=== PATIENT | female | born 1945 | race African-American/Black ===

== ENCOUNTER 2016-10-25 22:49 | Inpatient (IN) | payer MEDICARE ==
[~2016-10-25] VITALS: Ht 160 cm; Wt 87.3 kg
[2016-10-25 23:44] LABS: BASO % 0.6 % (0.0-2.0); EOS # 0.1 (0.0-0.7); EOS % 1.9 % (0-4.0); HEMATOCRIT 38.9 % (37.0-47.0); HEMOGLOBIN 12.3 g/dl (12.5-16.0); LYMPH # 1.6 (1.2-3.4); LYMPH % 29.7 % (20.0-51.0); MEAN CELL VOLUME 79 fl (80.0-100.0); MEAN CORPUSCULAR HEMOGLOBIN 25 pg (27.0-31.0); MEAN CORPUSCULAR HGB CONC 32 g/dl (33.0-37.0); MEAN PLATELET VOLUME 9.8 fl (7.4-10.4); MONO # 0.6 (0.1-0.6); MONO % 10.6 % (1.7-9.3); PLATELET COUNT 391 K/mm3 (130-400); RED BLOOD COUNT 4.93 M/mm3 (4.10-5.30); REDCELL DISTRIBUTION WIDTH-CV 15.1 % (11.5-14.5); WHITE BLOOD COUNT 5.3 K/mm3 (4.8-10.8)
[2016-10-25 23:57] LABS: INR 1.1 (0.8-3.0); PROTHROMBIN TIME 12.3 SECONDS (9.7-12.8)
[2016-10-26] VITALS (7 sets, daily range): BP systolic 105–156; BP diastolic 52–89; PULSE 87–103; TEMP 95–98.7
[2016-10-26] LABS: ADJUSTED CALCIUM 9.2 mg/dL (8.4-10.2); ALBUMIN 4.3 gm/dL (3.5-5.0); BILIRUBIN,TOTAL 0.9 mg/dL (0.0-1.0); CALCIUM 9.4 mg/dL (8.4-10.2); CREATININE, serum 0.75 mg/dL (0.52-1.25); POTASSIUM 3.9 mmol/L (3.4-5.0); TOTAL PROTEIN 8.3 gm/dL (6.4-8.2)
[2016-10-26 00:13] LABS: TROPONIN-I 0.033 ng/mL (0.000-0.034)
[2016-10-27 04:01] VITALS: BP 150/82; PULSE 87; TEMP 99
[2016-10-27 07:39] VITALS: BP 142/66; PULSE 98; TEMP 98
[2016-10-27 10:00] LABS: BASO % 0.2 % (0.0-2.0); EOS # 0.1 (0.0-0.7); GRAN # 2.2 (1.4-6.5); GRAN % 55.5 % (42.2-75.2); LYMPH # 1.4 (1.2-3.4); LYMPH % 35.2 % (20.0-51.0); MEAN CELL VOLUME 80 fl (80.0-100.0); MEAN CORPUSCULAR HEMOGLOBIN 24 pg (27.0-31.0); MEAN CORPUSCULAR HGB CONC 30 g/dl (33.0-37.0); MEAN PLATELET VOLUME 9.9 fl (7.4-10.4); MONO # 0.3 (0.1-0.6); MONO % 6.9 % (1.7-9.3); PLATELET COUNT 386 K/mm3 (130-400); RED BLOOD COUNT 4.73 M/mm3 (4.10-5.30); REDCELL DISTRIBUTION WIDTH-CV 15.3 % (11.5-14.5)
[2016-10-27 10:15] LABS: HEMOGLOBIN 11.5 g/dl (12.5-16.0)
[2016-10-27 11:43] VITALS: BP 92/53; PULSE 78; TEMP 98.3
[2016-10-27 15:10] VITALS: BP 130/67; PULSE 88; TEMP 97.9
[2016-10-27 18:12] LABS: CALCIUM 9.9 mg/dL (8.4-10.2); CREATININE, serum 0.78 mg/dL (0.52-1.25)
[2016-10-27 20:40] VITALS: BP 118/56; PULSE 87; TEMP 98.6
[2016-10-28] VITALS (7 sets, daily range): BP systolic 109–149; BP diastolic 54–74; PULSE 79–91; TEMP 97.5–98.3
[2016-10-28 07:51] LABS: BASO % 0.4 % (0.0-2.0); EOS # 0.1 (0.0-0.7); EOS % 2.7 % (0-4.0); GRAN # 2.5 (1.4-6.5); GRAN % 51.4 % (42.2-75.2); HEMATOCRIT 35.8 % (37.0-47.0); HEMOGLOBIN 11.3 g/dl (12.5-16.0); LYMPH # 1.5 (1.2-3.4); LYMPH % 31.3 % (20.0-51.0); MEAN CELL VOLUME 79 fl (80.0-100.0); MEAN CORPUSCULAR HEMOGLOBIN 25 pg (27.0-31.0); MEAN CORPUSCULAR HGB CONC 32 g/dl (33.0-37.0); MEAN PLATELET VOLUME 9.5 fl (7.4-10.4); MONO # 0.7 (0.1-0.6); PLATELET COUNT 371 K/mm3 (130-400); RED BLOOD COUNT 4.51 M/mm3 (4.10-5.30); WHITE BLOOD COUNT 4.9 K/mm3 (4.8-10.8)
[2016-10-28 08:11] LABS: CALCIUM 9.5 mg/dL (8.4-10.2); CREATININE, serum 0.75 mg/dL (0.52-1.25); POTASSIUM 4.2 mmol/L (3.4-5.0)
[2016-10-29] VITALS (8 sets, daily range): BP systolic 106–183; BP diastolic 57–96; PULSE 74–104; TEMP 97.5–98.3
[2016-10-29 06:31] LABS: BASO % 0.2 % (0.0-2.0); GRAN # 4.4 (1.4-6.5); GRAN % 77.1 % (42.2-75.2); HEMATOCRIT 38.7 % (37.0-47.0); HEMOGLOBIN 12.4 g/dl (12.5-16.0); LYMPH # 1.2 (1.2-3.4); LYMPH % 20.4 % (20.0-51.0); MEAN CELL VOLUME 78 fl (80.0-100.0); MEAN CORPUSCULAR HEMOGLOBIN 25 pg (27.0-31.0); MEAN CORPUSCULAR HGB CONC 32 g/dl (33.0-37.0); MEAN PLATELET VOLUME 9.8 fl (7.4-10.4); MONO # 0.1 (0.1-0.6); MONO % 1.8 % (1.7-9.3); PLATELET COUNT 437 K/mm3 (130-400); RED BLOOD COUNT 4.96 M/mm3 (4.10-5.30); REDCELL DISTRIBUTION WIDTH-CV 14.6 % (11.5-14.5); WHITE BLOOD COUNT 5.7 K/mm3 (4.8-10.8)
[2016-10-29 06:47] LABS: CALCIUM 9.9 mg/dL (8.4-10.2); CREATININE, serum 0.75 mg/dL (0.52-1.25); POTASSIUM 4.4 mmol/L (3.4-5.0)
[2016-10-29] MEDS ORDERED: ZEBETA 5MG5 MG PO (14:39)
[2016-10-29] MEDS ORDERED: ISORDIL 10MG10 MG PO (14:39)
[2016-10-29] MEDS ORDERED: FERROUS SU325 MG/TAB PO (14:39)
[2016-10-29] MEDS ORDERED: COZAAR 50MG50 MG/TAB PO (14:40)
[2016-10-29] MEDS ORDERED: ASPIRIN E.C. 8181 MG PO (14:40)
[2016-10-29] MEDS ORDERED: LASIX 40MG TABL40 MG PO (14:41)
[2016-10-29] MEDS ORDERED: K-TAB20 PO (14:41)
== END 2016-10-29 16:30 | disposition home or self-care (01) | DRG 189 ==
LOC: COL.ER 22:49 → MEDICAL 10-26 00:44 → COL.ER 10-26 00:44 → MEDICAL 10-27 13:00
PROVIDERS: Emergency Medicine; Internal Medicine Cardiovascular Disease
PROC: B2151ZZ Fluoroscopy of Left Heart using Low Osmolar Contrast (ICD-10-PCS; principal; 2016-10-29)
PROC: B2111ZZ Fluoroscopy of Multiple Coronary Arteries using Low Osmolar Contrast (ICD-10-PCS; 2016-10-29)
DX: J96.01 Acute respiratory failure with hypoxia (principal); I50.21 Acute systolic (congestive) heart failure; I24.8 Other forms of acute ischemic heart disease; D50.9 Iron deficiency anemia, unspecified; I10 Essential (primary) hypertension; M06.9 Rheumatoid arthritis, unspecified; I34.0 Nonrheumatic mitral (valve) insufficiency; Z87.891 Personal history of nicotine dependence; Z88.0 Allergy status to penicillin; Z91.041 Radiographic dye allergy status
CPT/HCPCS: OP; 99231-AI; 99239; C1769; C1887; C1894; G0378; J1200; J1644; J1650; J1940; J2250; J2930; J3010; J7512; Q9967

== ENCOUNTER → 2016-11-05 | Outpatient (CLI) | payer MEDICARE ==
[~2016-11-05] MED LIST: ASPIRIN E.C. 8181 MG PO; COZAAR 50MG50 MG/TAB PO; FERROUS SU325 MG/TAB PO; ISORDIL 10MG10 MG PO; K-TAB20 PO; LASIX 40MG TABL40 MG PO; LEVAQUIN 5500 MG/TA1 PO; PREDNISONE20 MG PO; ZEBETA 5MG5 MG PO
== END ==
LOC: COL.RAD 15:00
DX: Z53.9 Procedure and treatment not carried out, unspecified reason (principal)

== ENCOUNTER → 2016-11-06 | Outpatient (CLI) | payer MEDICARE | LOC: COL.RAD 11:21 | DX: J81.0 Acute pulmonary edema (principal); J98.11 Atelectasis; R91.8 Other nonspecific abnormal finding of lung field | CPT/HCPCS: J7512; Q9967 ==

== ENCOUNTER 2016-11-17 08:07 | Emergency (ER) | payer MEDICARE ==
[~2016-11-17] VITALS: Ht 160 cm; Wt 87.3 kg
[~2016-11-17 08:07] MED LIST changes: -LEVAQUIN 5500 MG/TA1 PO; -PREDNISONE20 MG PO
[2016-11-17 08:09] VITALS: TEMP 98.5
[2016-11-17 08:42] LABS: BASO % 0.4 % (0.0-2.0); EOS % 0.3 % (0-4.0); GRAN # 4.8 (1.4-6.5); GRAN % 65.4 % (42.2-75.2); HEMATOCRIT 37.5 % (37.0-47.0); HEMOGLOBIN 11.9 g/dl (12.5-16.0); LYMPH # 1.6 (1.2-3.4); LYMPH % 22.6 % (20.0-51.0); MEAN CELL VOLUME 79 fl (80.0-100.0); MEAN CORPUSCULAR HEMOGLOBIN 25 pg (27.0-31.0); MEAN CORPUSCULAR HGB CONC 32 g/dl (33.0-37.0); MEAN PLATELET VOLUME 9.5 fl (7.4-10.4); MONO # 0.8 (0.1-0.6); PLATELET COUNT 324 K/mm3 (130-400); RED BLOOD COUNT 4.73 M/mm3 (4.10-5.30); REDCELL DISTRIBUTION WIDTH-CV 15.5 % (11.5-14.5); WHITE BLOOD COUNT 7.3 K/mm3 (4.8-10.8)
[2016-11-17 08:51] LABS: ADJUSTED CALCIUM 9.2 mg/dL (8.4-10.2); ALBUMIN 4.2 gm/dL (3.5-5.0); BILIRUBIN,TOTAL 1.2 mg/dL (0.0-1.0); CALCIUM 9.4 mg/dL (8.4-10.2); CREATININE, serum 0.89 mg/dL (0.52-1.25); POTASSIUM 4.4 mmol/L (3.4-5.0); TOTAL PROTEIN 8.1 gm/dL (6.4-8.2)
[2016-11-17] MEDS ORDERED: PREDNISONE20 MG PO (10:04)
[2016-11-17] MEDS ORDERED: LEVAQUIN 5500 MG/TA1 PO (10:04)
[2016-11-17 10:14] VITALS: BP 126/76; PULSE 99
== END 2016-11-17 10:16 | disposition home or self-care (01) ==
LOC: COL.ER 08:07
PROVIDERS: Emergency Medicine
DX: J18.9 Pneumonia, unspecified organism (principal); J01.30 Acute sphenoidal sinusitis, unspecified; I11.0 Hypertensive heart disease with heart failure; I50.9 Heart failure, unspecified
CPT/HCPCS: J7512

== ENCOUNTER → 2016-11-23 | Outpatient (CLI) | payer MEDICARE ==
[~2016-11-23] MED LIST changes: +LEVAQUIN 5500 MG/TA1 PO; +PREDNISONE20 MG PO
[2016-11-23 22:11] LABS: IMMUNOGLOBULIN A 453 mg/dL (69-517); IMMUNOGLOBULIN G 815 mg/dL (552-1631); IMMUNOGLOBULIN M, QUANTITATIVE 188 mg/dL (33-293)
== END ==
LOC: COL.LAB 10:50
PROVIDERS: Internal Medicine Infectious Disease
DX: J47.9 Bronchiectasis, uncomplicated (principal)

== ENCOUNTER → 2016-11-28 | Outpatient (CLI) | payer MEDICARE | LOC: COL.LAB 11:21 | DX: J47.9 Bronchiectasis, uncomplicated (principal) ==

== ENCOUNTER → 2016-12-23 | Outpatient (CLI) | payer MEDICARE ==
[2016-12-23 13:31] LABS: BASO % 0.8 % (0.0-2.0); EOS # 0.3 (0.0-0.7); GRAN # 2.2 (1.4-6.5); GRAN % 42.9 % (42.2-75.2); HEMATOCRIT 37.3 % (37.0-47.0); LYMPH # 2.1 (1.2-3.4); LYMPH % 40.5 % (20.0-51.0); MEAN CELL VOLUME 80 fl (80.0-100.0); MEAN CORPUSCULAR HEMOGLOBIN 25 pg (27.0-31.0); MEAN CORPUSCULAR HGB CONC 32 g/dl (33.0-37.0); MEAN PLATELET VOLUME 9.2 fl (7.4-10.4); MONO # 0.5 (0.1-0.6); MONO % 10.4 % (1.7-9.3); PLATELET COUNT 340 K/mm3 (130-400); RED BLOOD COUNT 4.67 M/mm3 (4.10-5.30); REDCELL DISTRIBUTION WIDTH-CV 15.3 % (11.5-14.5); WHITE BLOOD COUNT 5.2 K/mm3 (4.8-10.8)
[2016-12-23 13:37] LABS: HEMOGLOBIN 11.8 g/dl (12.5-16.0)
[2016-12-23 13:47] LABS: ADJUSTED CALCIUM 9.2 mg/dL (8.4-10.2); ALBUMIN 4.2 gm/dL (3.5-5.0); BILIRUBIN,TOTAL 0.8 mg/dL (0.0-1.0); C-REACTIVE PROTEIN 1.3 mg/dL (0.0-0.9); CALCIUM 9.4 mg/dL (8.4-10.2); CREATININE, serum 0.86 mg/dL (0.52-1.25); POTASSIUM 4.4 mmol/L (3.4-5.0)
[2016-12-23 13:57] LABS: ERYTHROCYTE SEDIMENTATION RATE 42 mm/hr (0-30)
== END ==
LOC: COL.LAB 14:49
DX: J47.9 Bronchiectasis, uncomplicated (principal)

== ENCOUNTER → 2017-01-14 | Outpatient (CLI) | payer MEDICARE | LOC: COL.LAB 09:23 | DX: Z53.9 Procedure and treatment not carried out, unspecified reason (principal) ==

== ENCOUNTER → 2017-03-01 | Outpatient (CLI) | payer MEDICARE | LOC: COL.RAD 10:30 | DX: J98.4 Other disorders of lung (principal) ==

== ENCOUNTER → 2017-11-15 | Outpatient (CLI) | payer MEDICARE | LOC: COL.RAD 13:11 | DX: M46.1 Sacroiliitis, not elsewhere classified (principal) | CPT/HCPCS: G0260; J3301 ==

== ENCOUNTER → 2017-12-24 | Outpatient (CLI) | payer MEDICARE | LOC: MC.RAD 12-23 08:20 | DX: Z12.31 Encounter for screening mammogram for malignant neoplasm of breast (principal) ==

== ENCOUNTER → 2019-09-10 | Outpatient (CLI) | payer MEDICARE, OTHER | LOC: MC.RAD 14:15 | DX: Z12.31 Encounter for screening mammogram for malignant neoplasm of breast (principal); N63.21 Unspecified lump in the left breast, upper outer quadrant ==

== ENCOUNTER → 2019-09-18 | Outpatient (CLI) | payer MEDICARE, OTHER | LOC: MC.RAD 08:51 | DX: N63.20 Unspecified lump in the left breast, unspecified quadrant (principal) ==

== ENCOUNTER → 2019-09-29 | Outpatient (CLI) | payer MEDICARE, OTHER | LOC: MC.RAD 08:00 | DX: N63.20 Unspecified lump in the left breast, unspecified quadrant (principal); Z98.82 Breast implant status ==

== ENCOUNTER → 2020-04-11 | Outpatient (CLI) | payer MEDICARE, OTHER | LOC: MC.RAD 14:07 | DX: N63.20 Unspecified lump in the left breast, unspecified quadrant (principal); N64.89 Other specified disorders of breast | CPT/HCPCS: G0279 ==

== ENCOUNTER 2020-05-11 07:22 | Day surgery (SDC) | payer MEDICARE, OTHER ==
[2020-05-11] VITALS (9 sets, daily range): BP systolic 137–183; BP diastolic 70–87; PULSE 72–81; TEMP 98.2
[~2020-05-11] VITALS: Ht 160.1 cm; Wt 97.6 kg
[2020-05-11 08:21] LABS: HEMOGLOBIN 11.8 g/dl (12.5-16.0); MEAN CELL VOLUME 80 fl (80.0-100.0); MEAN CORPUSCULAR HEMOGLOBIN 25 pg (27.0-31.0); MEAN CORPUSCULAR HGB CONC 32 g/dl (33.0-37.0); MEAN PLATELET VOLUME 9.8 fl (7.4-10.4); PLATELET COUNT 330 K/mm3 (130-400); RED BLOOD COUNT 4.65 M/mm3 (4.10-5.30); REDCELL DISTRIBUTION WIDTH-CV 15.4 % (11.5-14.5)
[2020-05-11] MEDS ORDERED: RT ALBUTER2.5 MG/0.5 IH (08:25)
[2020-05-11] MEDS ORDERED: PROVENTIL0.09 MG/A1 IH (08:25)
[2020-05-11] MEDS ORDERED: ZEBETA10 MG PO (08:26)
[2020-05-11] MEDS ORDERED: BREO ELLIPTA 21 EACH IH (08:26)
[2020-05-11] MEDS ORDERED: CLARITIN 1010 MG/TAB PO (08:27)
[2020-05-11] MEDS ORDERED: ISORDIL 10MG10 MG PO (08:27)
[2020-05-11] MEDS ORDERED: THE MEDICINE S200 M2 PO (08:28)
[2020-05-11] MEDS ORDERED: COZAAR100 MG PO (08:28)
[2020-05-11 08:30] LABS: INR 1.1 (0.8-3.0); PROTHROMBIN TIME 11.9 SECONDS (9.7-12.8)
[2020-05-11 08:31] LABS: CALCIUM 9.5 mg/dL (8.4-10.2); CREATININE, serum 0.87 (0.52-1.25); POTASSIUM 3.9 mmol/L (3.4-5.0)
[2020-05-11 08:32] LABS: PARTIAL THROMBOPLASTIN TIME 30.4 SECONDS (26.0-37.0)
--- NOTE | 2020-05-11 09:20 | NUR ---
SEE MERERAK[facility] FOR ALL MEDICATION ADMINISTRATION TIMES AND INTRA AND POST SEDATION
[2020-05-11] MEDS ORDERED: APRESOLINE 25MG25 MG PO (09:56)
--- NOTE | 2020-05-11 10:15 | NUR ---
pt from [employer] via bed to eu 12. Pt is awake, alert. No c/o pain. Has 4x4 dressing to right groin area from right heart cath that is clean and dry, area is soft. Pt has call light, uses phone to talk with daughter. reviewed post op activity with pt on bedrest for 2 hours.
--- NOTE | 2020-05-11 11:00 | NUR ---
PT RESTS IN BED, NO C/O, ORDERED MEAL FOR PT
--- NOTE | 2020-05-11 12:15 | NUR ---
STARTED SLOW RELEASE OF TR BAND AT 2CC, RIGHT GRON SITE REMAINS THE SAME, CLEAN AND DRY, HOB ELEVATED, PT TAKES SPRITE. NO C/O
--- NOTE | 2020-05-11 12:30 | NUR ---
REMOVED TR AIR 2CC THEN 10 MIN 4CC, AREA WITHOUT BLEEDING OR SWELLING, BANDAID AND WRAP PLACED OVER SITE, PT UP WALKED TO B/R TO VOID, SITE OVER LEFT GROIN IS CLEAN AND DRY. REVIEWED DISCHARGE INST. WITH PT ON BOTH SITE CARES, ALSO FOLLOWUP IN [facility], AND TO [facility] NEW MEDICATION AND INFORMATION ON NEW MED. REVIEWED MODERATE SEDATION WITH PT WITH VERBAL UNDERSTANDING. IV D'CD INTACT. PT UP IN ROOM DRESSED. CALLED FOR RIDE
--- NOTE | 2020-05-11 13:45 | NUR ---
ride here for pt, discharged via w/c with instructions
== END 2020-05-11 14:01 | disposition home or self-care (01) ==
LOC: COL.CAR 07:22
PROVIDERS: Internal Medicine Cardiovascular Disease
DX: I25.10 Atherosclerotic heart disease of native coronary artery without angina pectoris (principal); I27.20 Pulmonary hypertension, unspecified; I42.9 Cardiomyopathy, unspecified; Z79.82 Long term (current) use of aspirin; Z79.51 Long term (current) use of inhaled steroids; Z88.7 Allergy status to serum and vaccine; Z88.5 Allergy status to narcotic agent; Z88.0 Allergy status to penicillin; Z88.3 Allergy status to other anti-infective agents; Z91.013 Allergy to seafood; Z88.8 Allergy status to other drugs, medicaments and biological substances
CPT/HCPCS: J1200; J1644; J2250; J2930; J3010; Q9967

== ENCOUNTER 2021-09-13 18:11 | Emergency (ER) | payer MEDICARE ==
[~2021-09-13] VITALS: Ht 160 cm; Wt 95.5 kg
[~2021-09-13 18:11] MED LIST changes: +APRESOLINE 25MG25 MG PO; +BREO ELLIPTA 21 EACH IH; +CLARITIN 1010 MG/TAB PO; +COZAAR100 MG PO; +PROVENTIL0.09 MG/A1 IH; +RT ALBUTER2.5 MG/0.5 IH; +THE MEDICINE S200 M2 PO; +ZEBETA10 MG PO
[2021-09-13 19:10] LABS: BASO % 0.2 % (0.0-2.0); GRAN # 4.5 K/mm3 (1.4-6.5); GRAN % 77.8 % (42.2-75.2); HEMOGLOBIN 11.9 g/dl (12.5-16.0); LYMPH # 0.9 K/mm3 (1.2-3.4); LYMPH % 15.4 % (20.0-51.0); MEAN CELL VOLUME 75 fl (80.0-100.0); MEAN CORPUSCULAR HEMOGLOBIN 25 pg (27.0-31.0); MEAN CORPUSCULAR HGB CONC 33 g/dl (33.0-37.0); MEAN PLATELET VOLUME 9.4 fl (7.4-10.4); MONO # 0.4 K/mm3 (0.1-0.6); MONO % 6.1 % (1.7-9.3); PLATELET COUNT 378 K/mm3 (130-400); RED BLOOD COUNT 4.85 M/mm3 (4.10-5.30); REDCELL DISTRIBUTION WIDTH-CV 14.6 % (11.5-14.5)
[2021-09-13 19:13] LABS: HEMATOCRIT 36.4 % (37.0-47.0)
[2021-09-13] MEDS ORDERED: MEDROL 4MG DOSPA4 MG PO (20:49)
[2021-09-13 21:06] LABS: ALBUMIN 2.6 gm/dL (3.4-4.8); C-REACTIVE PROTEIN 8.54 mg/dL (0.00-0.50); CALCIUM 8.4 mg/dL (8.4-10.2); CREATININE, serum 1.04 mg/dL (0.57-1.11); POTASSIUM 3.4 mmol/L (3.5-4.5); TOTAL PROTEIN 7.4 gm/dL (6.2-8.1)
[2021-09-13 23:09] VITALS: BP 105/29; PULSE 84; TEMP 98.9
== END 2021-09-13 23:10 | disposition home or self-care (01) ==
LOC: COL.ER 18:11
PROVIDERS: Emergency Medicine
DX: I11.0 Hypertensive heart disease with heart failure (principal); I50.9 Heart failure, unspecified; J18.9 Pneumonia, unspecified organism; J32.9 Chronic sinusitis, unspecified; R79.1 Abnormal coagulation profile; Z86.79 Personal history of other diseases of the circulatory system; Z98.61 Coronary angioplasty status; Z88.5 Allergy status to narcotic agent; Z79.82 Long term (current) use of aspirin
CPT/HCPCS: J1650; J7120; J8540

== ENCOUNTER → 2021-09-14 | Outpatient (CLI) | payer MEDICARE ==
[~2021-09-14] MED LIST changes: +MEDROL 4MG DOSPA4 MG PO
== END ==
LOC: COL.RAD 09-13 21:48
DX: U07.1 COVID-19 (principal); R79.1 Abnormal coagulation profile
CPT/HCPCS: A9540